=== PATIENT | female | born 1960 | race Caucasian/White ===

== ENCOUNTER → 2016-12-03 | Outpatient (CLI) | payer OTHER | LOC: FIMAGING 13:17 | PROVIDERS: ATTEND Family Medicine | DX: Z12.31 Encounter for screening mammogram for malignant neoplasm of breast (principal) | CPT/HCPCS: G0202 ==

== ENCOUNTER → 2017-09-14 | Outpatient (CLI) | payer OTHER | LOC: FIMAGING 12:01 | PROVIDERS: ATTEND Family Medicine | DX: N63.20 Unspecified lump in the left breast, unspecified quadrant (principal) ==

== ENCOUNTER 2018-06-04 00:44 | Emergency (ER) | payer OTHER ==
[2018-06-04 00:52] VITALS: BP 149/78
--- NOTE | 2018-06-04 01:10 | EDPHY ---
H & P Stated Complaint: R middle finger/hand pain/tingling x2 days Time Seen by Provider: 06/04/18 01:05 HPI/ROS: Chief Complaint: Right hand pain and tingling HPI: 57-year-old wounds been having pain in tingling in her right hand for the last 2 days. Primarily in her middle finger index finger little bit in her thumb. She did start steroids 4 days ago for some skin itching and dermatitis. Notice it is worse when she wakes up after sleeping. Has not noticed any discoloration. No fevers. Is also describing some tingling and numbness sensation. She is not dropping objects. No fevers or chills. No recent trauma or injuries. No history of pain when her hands get cold aura no ROS: 10 systems were reviewed and were negative except those elements noted in the HPI. Social History: No smoking, no alcohol, no recreational drug use Family History: non-contributory . Physical Exam: General: Awake, alert, no acute distress Right upper extremity: No joint tenderness, full range of motion without pain. She has normal flexion and extension strength of her elbow wrist and hand joints. Sensations intact in the radial, median and ulnar nerve distribution. Digits are warm to touch. Capillary refills less than 3 sec.. Normal radial and ulnar pulses. Skin: No rash - Personal History Current Tetanus/Diphtheria Vaccine: Yes - Medical/Surgical History Hx Asthma: No Hx Chronic Respiratory Disease: No Hx Diabetes: No Hx Cardiac Disease: No Hx Renal Disease: No Hx Cirrhosis: No Hx Alcoholism: No Hx HIV/AIDS: No Hx Splenectomy or Spleen Trauma: No Other PMH: depression - Social History Smoking Status: Never smoked Constitutional: Initial Vital Signs Temperature (C) 36.9 C 06/04/18 00:47 Heart Rate 75 06/04/18 00:47 Respiratory Rate 16 06/04/18 00:47 Blood Pressure 149/78 H 06/04/18 00:47 O2 Sat (%) 96 06/04/18 00:47 O2 Delivery Mode Room Air Allergies/Adverse Reactions: No Known Allergies Allergy (Unverified 06/04/18 00:50) Home Medications: Medication Instructions Recorded Paroxetine HCl 06/04/18 Wellbutrin Sr 06/04/18 methylPREDNISolone 06/04/18 Medical Decision Making ED Course/Re-evaluation: 57-year-old woman presenting with symptoms consistent with carpal tunnel syndrome. She has no bony deformity or tenderness. She is neurologically intact. Normal perfusion. She has been placed in a volar splint. Will give her oral analgesia. Will refer her to Neurology for nerve conduction studies and further evaluation. Departure - Departure Disposition: Home, Routine, Self-Care Clinical Impression: Carpal tunnel syndrome Condition: Good Instructions: Paresthesia (ED) Additional Instructions: Wear the wrist splint primarily at night or when at rest or if symptoms are worsening. You may take hydrocodone with acetaminophen as needed for pain. You may also take ibuprofen as an anti-inflammatory. Follow up with Neurology in 3-4 days to investigate nerve conduction studies. Follow up with primary care physician in 3-4 days for further evaluation. Referrals: Anay Sutherland MD [Primary Care Provider] - As per Instructions Juan Jeter DO [Medical Doctor] - As per Instructions
[2018-06-04] MEDS ORDERED: HYDROCOD/APAP 5/325 PREPACK#6 BTL TAKEHOME ONE (01:13)
== END 2018-06-04 01:27 | disposition home or self-care (01) ==
DX: G56.01 Carpal tunnel syndrome, right upper limb (principal)
CPT/HCPCS: L3984

== ENCOUNTER → 2018-10-12 | Outpatient (CLI) | payer OTHER | LOC: FIMAGING 14:20 | PROVIDERS: ATTEND Family Medicine | DX: Z12.31 Encounter for screening mammogram for malignant neoplasm of breast (principal) ==

== ENCOUNTER → 2018-10-18 | Outpatient (CLI) | payer OTHER | LOC: FIMAGING 10:00 | PROVIDERS: ATTEND Family Medicine | DX: R22.1 Localized swelling, mass and lump, neck (principal); R73.09 Other abnormal glucose ==